=== PATIENT | male | born 1925 | race Caucasian/White ===

== ENCOUNTER 2016-12-01 05:51 | Emergency (ER) | payer MEDICARE, OTHER ==
[2015-09-07 14:04] VITALS: BMI 22.9
[~2016-12-01 05:51] MED LIST: ARICEPT5 MG PO; COLACE100 MG PO; ELIQUIS5 MG PO; FERROUS SULFAT325 MG PO; HALCION0.25 MG PO; HYDROCHLOROTHIA25 MG PO; METAMUCIL PACKE1 PKT PO; PERCOCET 10/3251 TA1 PO; VITAMIN B-12500 MC1 PO; ZESTRIL40 MG PO
== END 2016-12-01 08:19 | disposition home or self-care (01) ==
LOC: D.ER 05:51
DX: S01.01XA Laceration without foreign body of scalp, initial encounter (principal); W01.0XXA Fall on same level from slipping, tripping and stumbling without subsequent striking against object, initial encounter; Y93.E1 Activity, personal bathing and showering; Y92.012 Bathroom of single-family (private) house as the place of occurrence of the external cause; S09.90XA Unspecified injury of head, initial encounter; D64.9 Anemia, unspecified; I11.9 Hypertensive heart disease without heart failure; H35.30 Unspecified macular degeneration

== ENCOUNTER 2017-09-07 06:04 | Emergency (ER) | payer MEDICARE, OTHER ==
[2015-09-07 14:04] VITALS: BMI 22.9
== END 2017-09-07 09:10 | disposition home or self-care (01) ==
LOC: D.ER 06:04
DX: S01.01XA Laceration without foreign body of scalp, initial encounter (principal); W18.09XA Striking against other object with subsequent fall, initial encounter; Y93.89 Activity, other specified; Y92.019 Unspecified place in single-family (private) house as the place of occurrence of the external cause